=== PATIENT | male | born 1945 | race Caucasian/White ===

== ENCOUNTER 2024-12-19 05:37 | Emergency (ER) | payer OTHER ==
[2024-12-19] MEDS ORDERED: Ondansetron PF 4 MG/2 ML Vial ONE (06:08)
[2024-12-19] MEDS ORDERED: Morphine 4 MG/ML VIAL ONE ×2 (06:08→07:55)
[2024-12-19] MEDS ORDERED: Sodium Chloride 0.9% 500 ML ONE (06:08)
[2024-12-19 07:14] LABS: #Eosinophils 0.2 thou/uL (0.0-0.7); #Lymphocytes 0.8 thou/uL (1.20-3.40); #Monocytes 0.4 thou/uL (0.11-0.59); #Neutrophils 6.3 thou/uL (1.40-6.50); %Basophils 0.2 % (0.0-1.0); %Eosinophils 2.4 % (0.0-10.0); %Lymphocytes 10.8 % (21.0-51.0); %Neutrophils 81.5 % (42.0-75.0); Hematocrit 33.8 % (42.0-52.0); Hemoglobin 10.7 g/dL (14.0-18.0); Mean Corpuscular HGB CONC 31.5 g/dL (32.0-36.0); Mean Corpuscular Hemoglobin 28.2 pg (27.0-31.0); Mean Corpuscular Volume 89.6 fl (78.0-98.0); Mean Platelet Volume 7.3 fL (7.4-10.4); Platelet Count 220 10x3/uL (130-400); RBC Distribution Width 11.6 % (11.5-14.5); Red Blood Cell (RBC) Count 3.78 mill/uL (4.70-6.10); White Blood Cell (WBC) Count 7.8 10x3/uL (4.8-10.8)
[2024-12-19 07:26] LABS: INR-International Normal Ratio 1.1; Prothrombin Time 14.1 sec (12.0-14.7)
[2024-12-19 07:30] LABS: ALT (SGPT) 20 U/L (Less than 45); AST (SGOT) 37 U/L (11-34); Albumin 2.9 g/dL (3.1-4.5); Alkaline Phosphatase 51 U/L (40-110); Anion Gap 12 mmol/L (10-20); BUN (Urea Nitrogen) 24 mg/dL (8.4-25.7); Bilirubin, Total 0.4 mg/dL (0.3-1.2); Calc. Creatinine Clearance 0 mL/min (70-130); Calcium 8.9 mg/dL (7.8-10.44); Carbon Dioxide 28 mmol/L (23-31); Chloride 103 mmol/L (98-107); Estimated GFR 59; Globulin 4.5 g/dL (2.4-3.5); Glucose 98 mg/dL (83-110); Potassium 4.6 mmol/L (3.5-5.1); Protein, Total 7.4 g/dL (5.8-8.1); Sodium 138 mmol/L (136-145)
[2024-12-19] MEDS ORDERED: Sodium Chloride 0.9% 1,000 ML ONE (11:18)
== END 2024-12-19 11:32 | disposition short-term general hospital (02) ==
LOC: EEVIPCON 05:37 → NAV ERS 05:37
DX: S72.141A Displaced intertrochanteric fracture of right femur, initial encounter for closed fracture (principal); I10 Essential (primary) hypertension; E78.5 Hyperlipidemia, unspecified; Z79.899 Other long term (current) drug therapy; W18.30XA Fall on same level, unspecified, initial encounter
CPT/HCPCS: 80053; 85025; 85610; 85730; 93005; 96374; 96375; 96376; J2270; J2405; J7030

== ENCOUNTER 2025-08-18 15:46 | Emergency (ER) | payer OTHER ==
[2025-08-18] MEDS ORDERED: Bacitracin 1 PK ONE (17:36)
== END 2025-08-18 18:10 ==
LOC: EEVIPCON 15:46 → NAV ERS 15:46
DX: S06.0X9A Concussion with loss of consciousness of unspecified duration, initial encounter (principal); G40.909 Epilepsy, unspecified, not intractable, without status epilepticus; I10 Essential (primary) hypertension; E78.5 Hyperlipidemia, unspecified; Z79.899 Other long term (current) drug therapy; W18.30XA Fall on same level, unspecified, initial encounter
CPT/HCPCS: 70450; 72125